=== PATIENT | female | born 1960 | race Caucasian/White ===

== ENCOUNTER → 2018-03-25 | Outpatient (CLI) | payer OTHER ==
[~2018-03-25] MED LIST: AMBIEN 5 MG TABL5 M1 PO; BACTRIM DS TAB1 EACH PO; COZAAR 50 MG TA50 M2 PO; CYMBALTA60 MG PO; IBUPROFEN 600600 M1 PO; KEFLEX500 MG; LOVASTATIN 20 M20 MG PO; NORCO 5-325 TA1 EACH PO; OMEPRAZOLE20 M2 PO
== END ==
LOC: M.RAD 11:03
DX: M25.552 Pain in left hip (principal)

== ENCOUNTER → 2018-10-07 | Outpatient (CLI) | payer OTHER | LOC: M.ULTRA 07:43 | DX: K76.0 Fatty (change of) liver, not elsewhere classified (principal); R10.84 Generalized abdominal pain; Z87.820 Personal history of traumatic brain injury; T87.44 Infection of amputation stump, left lower extremity ==

== ENCOUNTER → 2018-10-18 | Outpatient (CLI) | payer OTHER ==
[~2018-10-18] MED LIST changes: +CLONAZEPAM 0.50.5 M1 PO
== END ==
LOC: M.CT 12:06
DX: N28.1 Cyst of kidney, acquired (principal)

== ENCOUNTER → 2018-11-05 | Day surgery (SDC) | payer OTHER ==
--- NOTE | ~2018-11-05 | OP ---
[address] [address] OPERATIVE REPORT Name: KRISH RICHARD Room: [facility]#: [id number] Admission: 11/05/18 Attend Phys: Darrius Philip DO Discharge: Date of : 60 Report #: [id number] THIS REPORT FOR: //name// CC: Darrius Alarcon [facility] DICTATED BY: Wolf Mccoy DO DATE OF SERVICE: 11/05/2018 PREOPERATIVE DIAGNOSIS: Left lower quadrant abdominal pain. POSTOPERATIVE DIAGNOSIS: Intraperitoneal adhesions. SURGEON: Darrius Philip DO. ASSISTANTS: 1. Bernardo Mccoy, PGY4. 2. Meena Ho, PGY1. OPERATION: Diagnostic laparoscopy with lysis of adhesions. ANESTHESIA: General and local. ESTIMATED BLOOD LOSS: 20 mL. SPECIMENS REMOVED: None. COMPLICATIONS: None. DISPOSITION: PACU to home. The patient tolerated the procedure well and if recovers in PACU, likely be discharged home today. HISTORY OF PRESENT ILLNESS: The patient is a very pleasant 58-year-old female who presented to our clinic complaining of some left lower quadrant abdominal pain. She had a previous bilateral salpingo-oophorectomy and a postoperative hematoma, which occurred after her procedure. Since then, the patient continued to have mostly left lower quadrant abdominal pain of unknown origin. We did a CT of abdomen and pelvis, did not show much of any abnormalities besides what appeared to be a resolved hematoma. It was at that time, we recommended and discussed with the patient the possibility of doing a diagnostic laparoscopy with possible lysis of adhesions. A complete description of procedure was reviewed in detail with the patient and she voiced complete understanding. All risks, benefits, and complications were discussed at the time of this procedure. The patient was allowed to consider this operation [place] [address] OPERATIVE REPORT Name: HILARYKRISH [id number] Admission: 11/05/18 Attend Phys: Darrius Philip DO Discharge: Date of : 60 Report #: [id number] DESCRIPTION OF PROCEDURE: After appropriate consent was obtained, the patient was taken to operating room, laid in supine position. She had SCDs placed on her bilateral lower extremities and safety strap placed across her lap. She had all lines placed by Anesthesia. She was sedated and intubated by Anesthesia without difficulty. We had a foot board placed at the end of the bed to secure her feet. Her abdomen was then prepped and draped in a standard sterile fashion after a Maldonado catheter was placed. A timeout was performed to correctly identify the patient and procedure. We started with a supraumbilical incision using 11 blade scalpel. This was carried down through the subcutaneous tissue using electrocautery until we encountered the anterior abdominal fascia. Once the fascia was encountered, it was incised and elevated between 2 Nakul clamps. We then entered the intra-abdominal cavity using a hemostat. This was done bluntly. A finger was used to sweep the intra-abdominal cavity to ensure there were no micaela-incisional adhesions and none were present. We placed two 0 Vicryl sutures in a [id number] fashion at the inferior and superior aspect of our fascial incision to secure our Ariela trocar. The Ariela trocar was then introduced into the abdomen and the patient's belly was allowed to insufflate to 15 mmHg. It was at this time, we did initial inspection using our laparoscope and we were able to visualize the patient did have some adhesions. Most of these adhesions; however, were in her right lateral abdomen and along her left upper quadrant. We decided to place a 5-mm suprapubic port under direct visualization. We also placed a left lower quadrant abdominal port under direct visualization. There was also a 5-mm trocar. Using a blunt dissection as well as electrocautery, we did take down the adhesions that were present. These were located again in the right lateral abdomen as well as in the left upper quadrant. There was no bleeding from the omentum or the peritoneum. We did a further inspection and identified her normal appendix as well as ran the entirety of the small intestines and did not find any abnormalities. The patient did have a notable distention of her colon and appeared to be copious amounts of feces. We assume this is likely some chronic constipation issue. We did not see any other abnormalities. We did take a good look down in her pelvis and did not see any adhesions in the lower aspect of her pelvis. There were no obvious hernias that were present. We inspected the entirety of her large intestine again as well as a small intestine. It was at this time, we elected to end the procedure. Both of our 5-mm trocars were removed under direct visualization. The patient's abdomen was allowed to desufflate and the Ariela trocar was removed from the supraumbilical incision. We allowed the patient's abdomen to completely desufflate. The fascia was then elevated using the previously placed 0 Vicryl sutures. We did place two more 0 Vicryl sutures in a cnhuxo-kp-xstfz fashion to reapproximate the fascia. The fascia had reapproximated nicely and each of these were tied down completely. We then closed the subcutaneous tissue using a 3-0 Vicryl suture in an inverted interrupted fashion. The subcutaneous tissue as well as the skin was injected with 0.5% Marcaine. We closed the skin using a 4-0 Monocryl suture in a running subcuticular fashion. The 5-mm trocar sites were closed using the same 4-0 Monocryl suture in inverted interrupted fashion. We cleaned and dried the [address] [address] OPERATIVE REPORT Name: HECTORKRISH MORE [id number] Admission: 11/05/18 Attend Phys: Darrius Philip, Discharge: Date of : 60 Report #: [id number] patient's abdomen adequately and injected the skin further around each of the incision sites using 0.5% Marcaine. We placed Mastisol, Steri-Strips, and sterile Tegaderm over each of the incision sites and then placed a gauze and tape to act as pressure dressings over each of the incisions. The patient was then allowed to awaken in the operating room and subsequently extubated. She had her Maldonado catheter removed while in the OR. She tolerated the procedure very well and will be transferred to PACU for further recovery and likely discharged home later today. All counts were correct x 2 at the end of this procedure. Dr. Philip was present and scrubbed for the entirety of this procedure. By: [id number] Karan Philip DO /brian
[2018-11-05 08:46] LABS: HEMATOCRIT 36.8 % (37.0-47.0); HEMOGLOBIN 12.6 gm/dL (12.0-15.0); MCH 31.7 pg (26.0-34.0); MCHC 34.1 g/dL (28.0-37.0); MPV 7.4 fl. (7.2-11.1); RBC 3.96 mil/uL (4.20-5.00); WBC 5.4 thou/uL (4.0-11.0)
[2018-11-05 09:00] LABS: CALCIUM 9.2 mg/dL (8.5-10.1); CREATININE 0.9 mg/dL (0.6-1.3); POTASSIUM 3.9 mmol/L (3.5-5.1)
[2018-11-05 09:05] LABS: ALBUMIN 4.1 g/dL (3.4-5.0); TOTAL BILIRUBIN 0.2 mg/dL (<0.1-1.0); TOTAL PROTEIN 7.4 g/dL (6.4-8.2)
--- NOTE | 2018-11-06 18:02 | EKG ---
[place] [address] ELECTROCARDIOGRAM REPORT Name: HILARYKRISH SARBJIT Room: [facility]#: [id number] Admission: 11/05/18 Attend Phys: Darrius Philip DO Discharge: Date of : 60 Report #: [id number] THIS REPORT FOR: //name// [facility] Test Date: 2018-11-05 Test Time: 08:58:01 Pat Name: KRISH RICHARD Department: Room: Gender: F [employer] Architect: : 1960 Requested By: Yoan Curtis Order Number: [id number] MD: Jermaine Mari Measurements Intervals Kite Rate: 70 P: 52 OK: 149 QRS: 29 QRSD: 86 T: 42 QT: 412 QTc: 445 Interpretive Statements Sinus rhythm Low voltage, precordial leads Borderline T wave abnormalities Compared to ECG 07/09/2017 07:21:19 No significant changes Electronically Signed On 11-06-2018 18:02:21 [employer] by Jermaine Mari [email or web address] <ELECTRONICALLY SIGNED> By: Jermaine Mari MD, [facility] 11/06/18 180 7 Jermaine Mari MD, FACC /EPI
== END | disposition home or self-care (01) ==
LOC: M.SUR 10-29 12:48
PROVIDERS: Student in an Organized Health Care Education/Training Program
DX: K66.0 Peritoneal adhesions (postprocedural) (postinfection) (principal); Z90.722 Acquired absence of ovaries, bilateral; Z98.890 Other specified postprocedural states; Z79.899 Other long term (current) drug therapy